=== PATIENT | male | born 1965 | race Caucasian/White ===

== ENCOUNTER 2019-02-08 14:32 | Inpatient (IN) | payer OTHER ==
[2019-02-08 17:06] VITALS: BMI 33.5
--- NOTE | 2019-02-08 18:39 | HP ---
COWS - Scale Resting Pulse: 1= [place] 81-100 Sweatin=Flushed/Facial Moisture Restless Observation: 1= Difficult to Sit Still Pupil Size: 1= Pupils >than Normal Bone or Joint Aches: 1= Mild Discomfort Runny Nose/ Eye Tearin= Nasal Congestion GI Upset > 30mins: 1= Stomach Cramp Tremor Observation: 2= Slight Tremor Visible Yawning Observation: 0= None Anxiety or Irritability: 2=Irritable/Anxious Goose Flesh Skin: 0=Smooth Skin COWS Score: 12 CIWA Score - Admission Criteria [facility] Guidelines: Admission for Medically Managed Detox: Requires at least one of the followin. CIWA greater than 12 2. Seizures within the past 24 hours 3. Delirium tremens within the past 24 hours 4. Hallucinations within the past 24 hours 5. Acute intervention needed for co occurring medical disorder 6. Acute intervention needed for co occurring psychiatric disorder 7. Severe withdrawal that cannot be handled at a lower level of care (continued vomiting, continued diarrhea, abnormal vital signs) requiring intravenous medication and/or fluids 8. Admission ROS [facility] - [facility] Chief Complaint: seeking help for alcohol and heroin use Allergies/Adverse Reactions: Allergies Allergy/AdvReac Type Severity Reaction Status Date / Time No Known Allergies Allergy Verified 02/08/19 16:59 History of Present Illness: 53 y/o/m here seeking help for heroin use. He first started using Heroin a year ago due to the people he was around and is currently using 4-5 bags a day, he uses it by inhaling it. He last used Heroin this morning. He denies using any Fentanyl or Cocaine. He states he has not drank any alcohol for a month but prior to that he was drinking about a 6pack a day. He is currently smoking half a pack of cigarettes daily. He denies any PMHx or SHx. - Ebola screening Have you traveled outside of the country in the last 21 days: No (N) Have you had contact with anyone from an Ebola affected area: No Do you have a fever: No - Review of Systems Constitutional: No Symptoms Reported EENT: reports: No Symptoms Reported Respiratory: reports: Shortness of Breath Cardiac: reports: No Symptoms Reported GI: reports: No Symptoms Reported : reports: No Symptoms Reported Musculoskeletal: reports: No Symptoms Reported Integumentary: reports: No Symptoms Reported Neuro: reports: No Symptoms reported Endocrine: reports: No Symptoms Reported Psychiatric: reports: Agitated, Anxious Patient History - Patient Medical History Hx Anemia: No Hx Asthma: No Hx Chronic Obstructive Pulmonary Disease (COPD): No Hx Cancer: No Hx Cardiac Disorders: No Hx Congestive Heart Failure: No Hx Hypertension: No Hx Hypercholesterolemia: No Hx Pacemaker: No HX Cerebrovascular Accident: No Hx Seizures: No Hx Dementia: No Hx Diabetes: No Hx Gastrointestinal Disorders: No Hx Liver Disease: No Hx Genitourinary Disorders: No Hx Sexually Transmitted Disorders: No Hx Renal Disease (ESRD): No Hx Thyroid Disease: No Hx Human Immunodeficiency Virus (HIV): No (negative, 2011) Hx Hepatitis C: No Hx Depression: No Hx Suicide Attempt: No Hx Bipolar Disorder: No Hx Schizophrenia: No Other Medical History: no suicidal or homicidal ideations - Patient Surgical History Past Surgical History: No Hx Neurologic Surgery: No Hx Cataract Extraction: No Hx Cardiac Surgery: No Hx Lung Surgery: No Hx Abdominal Surgery: No Hx Appendectomy: No Hx Cholecystectomy: No Hx Genitourinary Surgery: No Hx Orthopedic Surgery: No Hx Hysterectomy: No Anesthesia Reaction: No - PPD History Previous Implant?: No PPD to be Administered?: Yes - Smoking Cessation Smoking history: Current every day smoker Aproximately how many cigarettes per day: 10 Hx Chewing Tobacco Use: No Initiated information on smoking cessation: Yes 'Breaking Loose' booklet given: 02/08/19 - Substance & Tx. History Hx Alcohol Use: Yes Hx Substance Use: Yes Substance Use Type: Alcohol, Heroin - Substances abused Alcohol Substance route: Oral Frequency: Daily Amount used: 1 six pack Age of first use: 15 Date of last use: 01/09/19 Heroin Substance route: Inhalation Frequency: Daily Amount used: 3- 5 bags, bundle Age of first use: 52 Date of last use: 02/08/19 Family Disease History - Family Disease History Family History: Denies Admission Physical Exam BHS - Vital Signs Vital Signs: Vital Signs - 24 hr 02/08/19 16:57 Temperature 98.3 F Pulse Rate 91 H Respiratory 18 Rate Blood Pressure 128/86 - Physical General Appearance: Yes: Sweating HEENTM: Yes: EOMI, Normocephalic Respiratory: Yes: Lungs Clear, No Accessory Muscle Use Neck: Yes: Supple Cardiology: Yes: Regular Rhythm, Regular Rate, S1, S2 Abdominal: Yes: Non Tender, Soft. No: Distended, Guarding, Rebound Back: No: Vertebral Tenderness Extremities: Yes: Normal Capillary Refill Neurological: Yes: small order cutter II-XII NML intact, Fully Oriented, Alert, Motor Strength 5/5, Finger to Nose Integumentary: Yes: Dry - Diagnostic (1) Heroin use disorder, mild, abuse Current Visit: Yes Status: Acute Cleared for Admission [facility] - Detox or Rehab [facility] Level of Care: Medically Managed Detox Regimen/Protocol: Methadone Breathalyzer - Breathalyzer Breathalyzer: 0 Urine Drug Screen - Test Device Lot number: [id number] Expiration date: 12/01/20 - Control Is test valid?: Yes - Results Drug screen NEGATIVE: No Urine drug screen results: WILLEM-Cocaine, FEN-Fentanyl, MOP-Opiates Inpatient Rehab Admission - Rehab Decision to Admit Inpatient rehab admission?: No
[2019-02-08] MEDS ORDERED: METHOCARBAMOL 500 MG TABLET PO PRN (19:11)
[2019-02-08] MEDS ORDERED: BISMUTH SUBSALICYLATE 524 MG/30 ML UD PO PRN (19:11)
[2019-02-08] MEDS ORDERED: IBUPROFEN 400 MG TABLET (FP) PO PRN (19:11)
[2019-02-08] MEDS ORDERED: MENTHOL/PHENOL 1 EACH UD MM PRN (19:11)
[2019-02-08] MEDS ORDERED: METHADONE HCL 10 MG TABLET (FOR DETOX USE ONLY) PO ONE (19:11)
[2019-02-08] MEDS ORDERED: MAGNESIUM CITRATE 300 ML BOTTLE PO PRN (19:11)
[2019-02-08] MEDS ORDERED: MAGNESIUM HYDROX 2400MG/30ML ORAL SUSPENSION 30 ML CUP PO PRN (19:11)
[2019-02-08] MEDS ORDERED: ACETAMINOPHEN 325 MG TABLET (FP) PO PRN (19:11)
[2019-02-08] MEDS ORDERED: NICOTINE POLACRILEX 2 MG GUM BUC PRN (19:11)
[2019-02-08] MEDS: THIAMINE HCL 100 MG TABLET (FP) PO SCH (22:12)
[2019-02-08] MEDS: MELATONIN 5 MG TABLETS PO PRN (22:12)
[2019-02-08] MEDS: hydrOXYzine HCL 25 MG TABLET (FP) PO PRN (22:12)
[2019-02-09] MEDS: PRENATAL VITAMINS W/ FOLIC ACID TABLET (FP) PO SCH (09:52)
[2019-02-09] MEDS ORDERED: METHADONE HCL 5 MG TABLET (FOR DETOX USE ONLY) PO ONE (10:00)
--- NOTE | 2019-02-09 10:14 | PN ---
BHS COWS - Scale Resting Pulse: 0= [place] 80 or Below Sweatin= Chills/Flushing Restless Observation: 1= Difficult to Sit Still Pupil Size: 1= Pupils >than Normal Bone or Joint Aches: 2= Severe Diffuse Aches Runny Nose/ Eye Tearin= Nasal Congestion GI Upset > 30mins: 2= Nausea/Diarrhea Tremor Observation of Outstretched Hands: 2= Slight Tremor Visible Yawning Observation: 1= 1-2x During Session Anxiety or Irritability: 2=Irritable/Anxious Goose Flesh Skin: 0=Smooth Skin COWS Score: 13 BHS Progress Note (SOAP) Subjective: alert,irritable,anxious,pain in the body and back,tremor Objective: 02/09/19 10:12 Vital Signs Temperature 98.1 F 02/09/19 09:28 Pulse Rate 77 02/09/19 09:28 Respiratory Rate 18 02/09/19 09:28 Blood Pressure 165/92 02/09/19 09:28 O2 Sat by Pulse Oximetry (%) 02/09/19 10:13 labs pending Assessment: 02/09/19 10:13 withdrawal symptom Plan: continue detox
[2019-02-09] MEDS: cloNIDine HCL 0.1 MG TABLET PO PRN ×3 (10:34→22:36)
[2019-02-09] MEDS: diazePAM 5 MG TABLET PO PRN ×3 (11:06→20:53)
[2019-02-09 12:09] LABS: HEMATOCRIT 42.8 % (35.4-49); HEMOGLOBIN 14.6 GM/dL (11.7-16.9); MCH 31.2 pg (25.7-33.7); MCHC 34.2 g/dl (32.0-35.9); MEAN CELL VOLUME 91.3 fl (80-96); MEAN PLT VOLUME 7.5 fl (7.5-11.1); PLATELET COUNT 346 K/MM3 (134-434); RBC 4.69 M/mm3 (4.00-5.60); RDW 13.8 % (11.9-15.9); WHITE BLOOD COUNT 9.1 K/mm3 (4.0-10.0)
[2019-02-09 14:34] LABS: ALBUMIN 3.6 g/dl (3.4-5.0); BILIRUBIN,TOTAL 0.4 mg/dL (0.2-1); BLOOD UREA NITROGEN 13.1 mg/dL (7-18); CALCIUM 8.6 mg/dL (8.5-10.1); CREATININE 0.9 mg/dL (0.55-1.3); TOT PROT 6.7 g/dl (6.4-8.2)
--- NOTE | 2019-02-09 14:35 | EKG ---
Test Reason : Blood Pressure : / mmHG Vent. Rate : 084 BPM Atrial Rate : 084 BPM P-R Int : 182 ms QRS Dur : 096 ms QT Int : 362 ms P-R-T Axes : 076 074 059 degrees QTc Int : 427 ms NORMAL SINUS RHYTHM NORMAL ECG NO PREVIOUS ECGS AVAILABLE Confirmed by Marcelino Madrid ([id number]) on 02/09/2019 2:34:35 PM Referred By: Confirmed By:Marcelino Madrid
[2019-02-09] MEDS: hydrOXYzine HCL 25 MG TABLET (FP) PO PRN (17:45)
[2019-02-09] MEDS: MAG HYDROX/AL HYDROX/SIMETH 30 ML UNIT-DOSE CUP PO PRN (20:54)
[2019-02-09] MEDS: THIAMINE HCL 100 MG TABLET (FP) PO SCH (22:34)
[2019-02-09] MEDS: MELATONIN 5 MG TABLETS PO PRN (22:37)
[2019-02-10] MEDS: diazePAM 5 MG TABLET PO PRN ×4 (07:23→22:12)
[2019-02-10] MEDS ORDERED: METHADONE HCL 10 MG TABLET (FOR DETOX USE ONLY) PO ONE (10:00)
[2019-02-10] MEDS: hydrOXYzine HCL 25 MG TABLET (FP) PO PRN ×2 (11:04→20:01)
[2019-02-10] MEDS: PRENATAL VITAMINS W/ FOLIC ACID TABLET (FP) PO SCH (11:04)
[2019-02-10] MEDS: MAG HYDROX/AL HYDROX/SIMETH 30 ML UNIT-DOSE CUP PO PRN (11:53)
--- NOTE | 2019-02-10 12:58 | PN ---
Teaching Attending Note Name of Resident: Mahnaz Michel ATTENDING PHYSICIAN STATEMENT I saw and evaluated the patient. I reviewed the resident's note and discussed the case with the resident. I agree with the resident's findings and plan as documented. SUBJECTIVE: seeking help for alcohol and heroin use OBJECTIVE: VS were WNL pt was mildly tremulous and a bit anxious ASSESSMENT AND PLAN: pt will be admitted with OUD- detox treatment protocol with methadone
[2019-02-10] MEDS ORDERED: cloNIDine HCL 0.1 MG TABLET PO PRN (13:05)
--- NOTE | 2019-02-10 13:05 | PN ---
BHS Progress Note (SOAP) Subjective: pt states he is not feeling well- with withdrawal Sx. Pt is on lowered doses of methadone O: Vital Signs - 24 hr 02/09/19 02/09/19 02/09/19 13:32 17:35 21:14 Temperature 98.0 F 98.1 F 97.5 F L Pulse Rate 76 94 H 87 Respiratory 18 18 20 Rate Blood Pressure 143/87 146/90 140/91 02/10/19 02/10/19 02/10/19 00:30 06:15 09:21 Temperature 97.9 F 97.7 F Pulse Rate 72 72 Respiratory 18 18 18 Rate Blood Pressure 120/82 126/56 L Laboratory Tests 02/09/19 02/09/19 02/09/19 06:00 06:00 06:00 WBC 9.1 RBC 4.69 Hgb 14.6 Hct 42.8 MCV 91.3 MCH 31.2 MCHC 34.2 RDW 13.8 Plt Count 346 MPV 7.5 Sodium 139 Potassium 4.0 Chloride 104 Carbon Dioxide 25 Anion Gap 10 BUN 13.1 Creatinine 0.9 Est GFR (CKD-EPI)AfAm 113.41 Est GFR (CKD-EPI)NonAf 97.85 Random Glucose 88 Calcium 8.6 Total Bilirubin 0.4 AST 12 L ALT 27 Alkaline Phosphatase 56 Total Protein 6.7 Albumin 3.6 RPR Titer Nonreactive labs and VS WNL a/p: continue detox protocol d/w pt [employer] treatment with methadone or suboxone prn meds with vistaril/clonidine and klonopin
[2019-02-10] MEDS: MELATONIN 5 MG TABLETS PO PRN (22:10)
[2019-02-10] MEDS: THIAMINE HCL 100 MG TABLET (FP) PO SCH (22:10)
[2019-02-10] MEDS: ACETAMINOPHEN 325 MG TABLET (FP) PO PRN (22:50)
[2019-02-11] MEDS: diazePAM 5 MG TABLET PO PRN (05:46)
[2019-02-11] MEDS: ACETAMINOPHEN 325 MG TABLET (FP) PO PRN (05:47)
[2019-02-11] MEDS ORDERED: METHADONE HCL 5 MG TABLET (FOR DETOX USE ONLY) PO ONE (06:00)
--- NOTE | 2019-02-11 08:49 | DS ---
[facility] Detox Discharge Summary Admission Date: 02/08/19 Discharge Date: 02/11/19 - History Present History: Opioid Dependence - Physical Exam Results Vital Signs: Vital Signs Temperature 99 F 02/10/19 20:45 Pulse Rate 88 02/10/19 20:45 Respiratory Rate 18 02/11/19 03:30 Blood Pressure 137/88 02/10/19 20:45 O2 Sat by Pulse Oximetry (%) - Treatment Hospital Course: Detox Protocol Followed, Detoxed Safely, Responded well, Discharged Condition Good, Rehab Referral Accepted - Medication Discharge Medications: Ambulatory Orders NK [No Known Home Medication] 02/08/19 - Diagnosis (1) Heroin use disorder, mild, abuse Current Visit: Yes Status: Chronic (2) Laceration of right upper arm Current Visit: No Status: Chronic Qualifiers: Encounter type: initial encounter Qualified Code(s): S41.111A - Laceration without foreign body of right upper arm, initial encounter - AMA Did Patient Leave Against Medical Advice: No (declined aftercare referred to positive direction OTP)
[2019-02-11 09:29] VITALS: BP 139/79; PULSE 78; TEMP 98.4
== END 2019-02-11 09:21 | disposition home or self-care (01) | DRG 773 ==
LOC: YASAS 14:32 → Y6N 19:53
PROVIDERS: ADMIT Surgery; ATTEND Surgery
PROC: HZ2ZZZZ Detoxification Services for Substance Abuse Treatment (ICD-10-PCS; principal; 2019-02-08)
DX: F11.23 Opioid dependence with withdrawal (principal); F10.10 Alcohol abuse, uncomplicated; F17.210 Nicotine dependence, cigarettes, uncomplicated
CPT/HCPCS: 36415; 80053; 85027; 86480; 86593; 93005; 93010; J0735

== ENCOUNTER 2019-09-01 09:44 | Emergency (ER) | payer OTHER ==
[2019-09-01 10:00] VITALS: BMI 35.6
[2019-09-01] MEDS ORDERED: predniSONE 20 MG TABLET (UD) PO ONE (10:42)
[2019-09-01] MEDS ORDERED: ALPRAZolam 0.25 MG TABLET PO ONE (10:43)
[2019-09-01] MEDS: ALBUTEROL SO4 2.5/IPRATROPIUM 0.5 INH SOL 3 ML VIAL.NEB. NEB SCH ×4 (10:50→11:30)
[2019-09-01] MEDS ORDERED: predniSONE 20 MG TABLET (UD) ONE (10:52)
[2019-09-01] MEDS ORDERED: ALBUTEROL SO4 2.5/IPRATROPIUM 0.5 INH SOL 3 ML VIAL.NEB. NEB ONE (10:52)
[2019-09-01] MEDS ORDERED: ALPRAZolam 0.25 MG TABLET ONE (10:52)
--- NOTE | 2019-09-01 10:52 | PDOC ---
Documentation entered by María Ho SCRIBE, acting as scribe for Kimmie Shah MD. Kimmie Shah MD: This documentation has been prepared by the Georgia herrera Nirvannie, SCRIBE, under my direction and personally reviewed by me in its entirety. I confirm that the documentation accurately reflects all work, treatment, procedures, and medical decision making performed by me. History of Present Illness - General Chief Complaint: Shortness of Breath Stated Complaint: SHORTNESS OF BREATH Time Seen by Provider: 09/01/19 10:16 History Source: Patient Exam Limitations: No Limitations - History of Present Illness Initial Comments: 09/01/19 11:24 HPI: The 54YOF with a significant past medical history of asthma, anxiety ( noncompliant with medications for >1yr) and hypertension (not on medications), presenting with 2 days of worsening anxiety and shortness of breath. As per patient, over the course of the past two days he has been experiencing increased anxiety which he believes causes asthma exacerbations. He endorses associated decreased sleep, racing thoughts, headache, palpitations, and rhinorrhea. He notes his symptoms are mildly alleviated with his rescue inhaler. Patient was formerly followed by psychiatry and prescribed Zoloft, Ambien, Seraquil, and Klonopin, however, has been noncompliant with medications and outpatient follow up secondary to his case being closed. Denies any SI/HI. Denies any LOC. Denies fever, chills, chest pain, dizziness, weakness, N, V, D, abdominal pain, bladder and bowel problems, focal weakness/ paresthesias, leg swelling/pain, rash. No sick contacts or travel. No new changes in medications. Allergies: None Past Medical History/PSH: asthma, anxiety (noncompliant with medications for > 1yr) and hypertension(not on medications) Social history: Lives with family. No tobacco, ETOH or drug use. Meds: as documented in EMR Family history: noncontributory ROS: Constitutional: no fevers or chills. HEENT: no headache or dizziness. No congestion. No visual/hearing disturbances. CVS: no cp or syncope. Resp: +sob. No cough. Gastrointestinal: no abdominal pain, nausea or vomiting. Genitourinary: no urinary sx, hematuria. MUSCULOSKELETAL: No joint pain and swelling. No neck or back pain. SKIN: no redness or skin changes, no discharge, no rash. No wounds. Hematologic: no easy bruising/bleeding. NEUROLOGIC: No headache, dizziness, LOC or altered mental status. No weakness, numbness or tingling. Psych: +anxiety. No depression. Allergic/Immunologic: no allergies All other systems reviewed and negative, or as documented in HPI. Physical exam: General: Well appearing, awake and alert, NAD. HEENT: NCAT, PERRL, EOMI, clear conjunctiva, anicteric, moist mucus membranes, clear oropharynx, no oral lesions.. Neck: neck supple, FROM Resp: +Bilateral expiratory wheezing. normal and even respirations, no respiratory distress CVS: RRR, no murmurs, 2+ peripheral pulses throughout, no peripheral edema Abdomen: soft, NTND, no rebound or guarding. No CVAT. Back: nontender, normal inspection and ROM MSK: no edema, FISCHER x4, ROM intact. No clubbing or cyanosis. normal bulk and tone. Extremities: no calf tenderness Neuro: alert, oriented appropriately; no focal neurologic deficits Psych: Calm and cooperative Skin: warm and well perfused, cap refill <2 sec, normal color 09/01/19 12:00 Past History - Past Medical History Allergies/Adverse Reactions: Allergies Allergy/AdvReac Type Severity Reaction Status Date / Time No Known Allergies Allergy Verified 09/01/19 10:00 Home Medications: Ambulatory Orders Albuterol Sulfate Inhaler - [Ventolin Hfa Inhaler -] 1 - 2 inh PO Q4H 09/01/19 Prednisone [Prednisone 50 MG TABLETS] 50 mg PO DAILY #4 tablet 09/01/19 - Psycho Social/Smoking Cessation Hx Smoking History: Current every day smoker Have you smoked in the past 12 months: Yes Number of Cigarettes Smoked Daily: 20 Information on smoking cessation initiated: Yes Hx Alcohol Use: No Drug/Substance Use Hx: No *Physical Exam - Vital Signs Last Vital Signs Temp Pulse Resp BP Pulse Ox 98 F 103 H 22 H 136/97 97 09/01/19 09:57 09/01/19 09:57 09/01/19 09:57 09/01/19 09:57 09/01/19 09:57 Heart Score/ECG Review #1 ECG reviewed & interpreted by me at: 10:35 General ECG Interpretation: Sinus Rhythm, Normal Rate, Normal Intervals 09/01/19 10:51 EKG normal sinus rhythm at 97 bpm, no interval abnormalities, narrow QRS, ST and T wave segments and morphology normal. ED Treatment Course - RADIOLOGY Radiology Studies Ordered: Category Date Time Status CHEST PA & LAT [RAD] Stat Radiology 09/01/19 10:20 Ordered Medical Decision Making - Medical Decision Making 09/01/19 10:47 Vital Signs Temp Pulse Resp BP Pulse Ox 98 F 103 H 22 H 136/97 97 09/01/19 09:57 09/01/19 09:57 09/01/19 09:57 09/01/19 09:57 09/01/19 09:57 DDx SOB: ACS, PE, PTX, CHF, COPD exac, pulmonary edema, pleurisy, pneumonia, viral syndrome. effusion. anemia, electrolyte/metabolic derangements. Considered but clinically doubt based on HPI and PE: Low suspicion for pulmonary embolism or dissection. vitals reviewed wnl EKG NSR CXR clear, however incidental left upper lobe density, calcification vs nodule? does not appear infectious pt given information of incidental finding, and given his smoking history, warrants follow up with PMD and smoking cessation and workup to eval nodular/ density finding to r/o malignancy and close followup. no e/o ptx or pna. no cp or syncome sob attributable to his asthma, with his wheezing and current smoking smoking cessation advised given duonebs here, prednisone, reassess xanax here for anxiolysis, referrals for psych to reinstate his meds he used previously for his anxiety including klonopin, seroquel and xanax. can use otc melatonin as needed for sleep aid avoid triggers, stressors and smoking cessation. Pt to be discharged in stable condition. Patient and family made aware of clinical impression, treatment recommendations and disposition plan, return precautions discussed (including but not limited to new or persistent/worsening symptoms, pain, fevers, or signs of infection, chest pain, respiratory distress , inability to tolerate oral intake, dehydration, syncope, or neurologic changes ). Follow up with PMD and/or specialists as recommended, follow up information provided, take medications as instructed for duration of time. continue with supportive care, avoid triggers and precipitants. All questions answered to patient's satisfaction and expressed understanding and comfort with this. At the time of discharge, the patient is alert, clinically improved, tolerating po and verbalizes understanding of instructions, satisfied with the care received and felt comfortable with the plan. Patient does not suffer from an acute life- threatening medical condition at this time and is safe for outpatient follow- up. 09/01/19 12:00 Discharge - Discharge Information Problems reviewed: Yes Clinical Impression/Diagnosis: Asthma exacerbation Qualifiers: Asthma severity: mild Asthma persistence: intermittent Qualified Code(s): J45.21 - Mild intermittent asthma with (acute) exacerbation Condition: Improved Disposition: HOME - Admission No - Additional Discharge Information Prescriptions: Prednisone [Prednisone 50 MG TABLETS] 50 mg PO DAILY #4 tablet - Follow up/Referral Referrals: [facility] [Provider Group] [facility] [Provider Group] Florentino Juarez NP [Nurse Practitioner] - Jean Alamo MD [Staff Physician] - Velia Ambrose NP [Nurse Practitioner] - - Patient Discharge Instructions Patient Printed Discharge Instructions: DI for Asthma -- Adult, DI for Shortness of Breath Additional Instructions: 1) Please follow-up with your primary care doctor in the next 1-2 days. Please call tomorrow for for any urgent issues. referrals given for psychiatry and primary care to resume your medications and reevaluate for your asthma 2) You were given a copy of the tests performed today. Please bring the results with you and review them with your primary care doctor. Your laboratory / imaging results were normal, Including your EKG your chest x ray was clear, however there is a left sided upper density that could be a nodule vs mass, that needs to be evaluated with your doctor for further workup 3) If you have any worsening of symptoms or any other concerns please return to the ED immediately. Return if worsening symptoms including fevers, headache, vomiting, visual or hearing disturbances, abdominal pain, chest pain, shortness of breath, syncope, dehydration, inability to take things by mouth/vomiting, altered mental status, or worsening concerning symptoms. 4) Please continue taking your home medications as directed. do not drink alcohol with your medications. you will be discharged on prednisone daily x 4 more days, start tomorrow you can take melatonin once at nighttime to help you sleep use your albuterol inhaler every 4-6 hours as needed for the asthma and wheezing /shortness of breath Stay well hydrated and rest adequately. Make an appointment. If you cannot follow-up with your primary care doctor please return to the ED smoking cessation advised, as this is the likely trigger for your symptoms and presentation - Post Discharge Activity Work/Back to School Note: Back to Work
[2019-09-01 12:02] VITALS: BP 143/99; PULSE 109; TEMP 97.9
--- NOTE | 2019-09-01 14:28 | EKG ---
Test Reason : Blood Pressure : / mmHG Vent. Rate : 097 BPM Atrial Rate : 097 BPM P-R Int : 184 ms QRS Dur : 096 ms QT Int : 336 ms P-R-T Axes : 056 053 038 degrees QTc Int : 426 ms NORMAL SINUS RHYTHM POSSIBLE LEFT ATRIAL ENLARGEMENT RSR' OR QR PATTERN IN V1 SUGGESTS RIGHT VENTRICULAR CONDUCTION DELAY BORDERLINE ECG NO PREVIOUS ECGS AVAILABLE Confirmed by Thomas Sampson MD ([id number]) on 09/01/2019 2:28:37 PM Referred By: Confirmed By:Thomas Sampson MD
== END 2019-09-01 12:10 | disposition home or self-care (01) ==
LOC: JER 09:44 → MERGE 09:44 → JER 12:10
PROC: 3E0F7GC Introduction of Other Therapeutic Substance into Respiratory Tract, Via Natural or Artificial Opening (ICD-10-PCS; principal; 2019-09-01)
DX: J45.21 Mild intermittent asthma with (acute) exacerbation (principal); F17.210 Nicotine dependence, cigarettes, uncomplicated; J45.909 Unspecified asthma, uncomplicated; F41.9 Anxiety disorder, unspecified; I10 Essential (primary) hypertension
CPT/HCPCS: 71046-TC-FY; 93005; 93010; 94640; 99282-25